=== PATIENT | female | born 1960 | race Caucasian/White ===

== ENCOUNTER 2023-11-28 14:39 | Inpatient (IN) | payer OTHER, SELFPAY ==
[2023-11-28] VITALS (9 sets, daily range): BP systolic 133–178; BP diastolic 56–91; BMI 25.3
[2023-11-28 12:44] LABS: % Basophils 0.3 % (0-2); % Eosinophils 1.2 % (0-6); % Immature Granulocytes 0.4 % (0-0.5); % Lymphocytes 27.7 % (20.5-51.1); % Monocytes 7.5 % (1.7-9.3); % Neutrophils 62.9 % (42.2-75.2); Absolute Eosinophils 0.1 10^3/uL (0-0.7); Absolute Lymphocytes 2.7 10^3/uL (1.2-3.4); Absolute Monocytes 0.7 10^3/uL (0.1-0.6); Absolute Neutrophils 6.2 10^3/uL (1.4-6.5); Hemoglobin 6.3 g/dL (12.0-16.0); Mean Corp Hgb Conc. 33.2 g/dL (33.0-37.0); Mean Corpuscular Hgb 29.6 pg (27.0-31.0); Mean Corpuscular Volume 89.2 fL (81.0-99.0); Mean Platelet Volume 11.6 fL (7.4-10.4); Nucleated Red Blood Cells % 0 %; Platelet Count 370 10^3/uL (130-400); Red Blood Cell Count 2.13 10^6/uL (4.20-5.40); Red Cell Dist. Width 16.3 % (11.5-14.5); White Blood Cell Count 9.9 10^3/uL (4.8-10.8)
[2023-11-28 12:50] LABS: ALT (SGPT) 14 U/L (0-35); AST (SGOT) 26 U/L (14-36); Albumin 3.9 g/dl (3.5-5.0); Alkaline Phosphatase 67 U/L (38-126); Blood Urea Nitrogen 22 mg/dl (7-17); Calcium 9.5 mg/dl (8.4-10.2); Carbon Dioxide 23 mmol/L (22-30); Chloride 110 mmol/L (98-107); Glucose 101 mg/dl (70-99); Lipase 130 U/L (23-300); Potassium 3.9 mmol/L (3.5-5.1); Sodium 140 mmol/L (135-145); Total Bilirubin 0.3 mg/dl (0.2-1.3); Total Protein 6.2 g/dl (6.3-8.2); eGFR 51.18
[2023-11-28 12:52] LABS: Urine Albumin Trace (Neg - Trace); Urine Bilirubin Negative (Negative); Urine Character Clear (Clear); Urine Color Yellow; Urine Glucose Negative (Negative); Urine Ketone Trace (Negative); Urine Leukocyte 2+ (Negative); Urine Nitrite Positive (Negative); Urine Occult Blood Trace (Negative); Urine Urobilinogen Negative (Neg - 1+)
--- NOTE | 2023-11-28 13:40 | ED.GENMED ---
History of Present Illness
General
Chief Complaint: Back Pain
Source: patient
Exam Limitations: none
Time Seen by Provider: 11/28/23 13:02
Nursing documentation reviewed up to this point in time: agreed with
History of Present Illness
History of Present Illness:
63-year-old female past medical history of hyperlipidemia previous smoker presenting to the emergency department today with feeling generally unwell over the last few days increasing shortness of breath fatigue and weakness. She has also had
ongoing back pain mainly to the low back with radiation down both legs. She was told that he had degenerative disc disease in the past as well. She is also had black stool over the past week. Denies any chest pain nausea vomiting numbness
weakness.
Past History
Past History
ED Past Medical History: Hypercholesterolemia (She takes a torn a statin)
ED Past Surgical History: None
Social History
Tobacco: Smoker
Living: with family
Employment: Employed
Review of Systems
Review of Systems
Allergies reviewed?: Yes
All Other Systems: ROS reviewed and negative except as documented in HPI and ROS
Phy Exam
Physical Exam
Physical Exam:
GENERAL: Alert , in no apparent distress
EYE: pupils equal and reactive
NECK: Supple, no significant adenopathy.
ENT: o/p clr, mmm.
CARDIAC: Regular rate and rhythm .
LUNGS: Clear breath sounds bilaterally, no acute respiratory distress, no wheezes/rales/rhonchi
ABDOMEN: Rectal examination with black stool guaiac positive, soft, without focal tenderness, no r/g, no cvat
NEUROLOGICAL: Alert and oriented, no focal neuro deficits
SKIN: Warm and dry, skin intact.
MUSCULOSKELETAL: No edema, well perfused.
PSYCH: Normal and appropriate interaction.
Course
Orders/Labs/Results
Orders:
Orders
11/28/23 12:14
ECG [Electrocardiogram (*1)] Urgent
Reason for Study: Chest Pain
EKG- Treatment ONCE
11/28/23 12:29
Complete Blood Count/With Diff Urgent
Comprehensive Metabolic Panel Urgent
Lipase Urgent
Troponin I Urgent
11/28/23 12:30
PT/INR [Prothrombin Time] Urgent
PTT Urgent
11/28/23 12:39
Urinalysis Reflex To Culture Urgent
Date Specimen was Collected: 11/28/23
Time Specimen was Collected: 12:37
Urine Microscopic Reflex Cult Urgent
Urine Culture Urgent
NALLELY Source: U
Specimen Description:
Date Specimen was Collected: 11/28/23
Time Specimen was Collected: 12:37
11/28/23 13:15
Type+Screen Urgent
11/28/23 13:21
* Blood Bank Products Urgent
Blood Bank Products: *Packed RBC Leuko(PRBC's)
Quantity: 1
Transfuse Today: Yes
Reason: Anemia
0.9% Sodium Chloride 1000 ml [Nss] 1,000 ml IV BOLUS
Pantoprazole [Protonix IV] 80 mg IV NOW STA
11/28/23 13:22
diazePAM [Valium Injection] 2 mg IV NOW STA
Abnormal Lab Results
11/28/23 11/28/23
12:29 12:39
RBC 2.13 L 10^6/uL
(4.20-5.40)
Hgb 6.3 L* g/dL
(12.0-16.0)
Hct 19.0 L* %
(37.0-47.0)
RDW 16.3 H %
(11.5-14.5)
MPV 11.6 H fL
(7.4-10.4)
Absolute Monos (auto) 0.7 H 10^3/uL
(0.1-0.6)
Chloride 110 H mmol/L
(98-107)
BUN 22 H mg/dl
(7-17)
Creatinine 1.2 H mg/dL
(0.6-1.0)
Glucose 101 H mg/dl
(70-99)
Total Protein 6.2 L g/dl
(6.3-8.2)
Urine Ketones Trace A
(Negative)
Ur Occult Blood Reflex Trace A
(Negative)
Urine Nitrite (Reflex) Positive A
(Negative)
Leukocyte Esterase Rfl 2+ A
(Negative)
Urine RBC 3-6 A /HPF
(0-2)
Urine Bacteria (Reflex) Many A
(Negative)
11/28/23 12:29
11/28/23 12:29
Vital Signs
Initial and Last Documented VS:
Initial Vital Signs
Temp Pulse Resp BP Pulse Ox
98.4 F 64 16 146/64 94
11/28/23 12:41 11/28/23 12:41 11/28/23 12:41 11/28/23 12:41 11/28/23 12:41
Last Documented Vital Signs
Temp Pulse Resp BP Pulse Ox
98.4 F 75 22 146/64 94
11/28/23 12:41 11/28/23 13:15 11/28/23 13:15 11/28/23 12:41 11/28/23 12:41
MDM/Problems Addressed
MDM/Problems Addressed:
63-year-old female presenting to the emergency department today with concerns of generalized weakness fatigue worsening over the past week also having back pain. Upon arrival here patient does have black stool that is guaiac positive. Reproducible
abdominal pain or back pain no red warmth. Hemoglobin of 6.3 patient was written for a unit of blood and will be admitted for GI consultation. Otherwise patient did have nitrite positive urine however no urinary symptoms at this point we will hold
on antibiotic.
*Critical Care Note
Total Time (30-74mins, 75-104mins- exclusive of procedures): Not Applicable
ED Attending Note
-
Portions of this chart may have been created with voice recognition software.� Occasional wrong word or��sound alike� substitutions may have occurred due to the inherent limitations of voice recognition software.
Discharge Plan
Departure
Patient Disposition: Admit
Date of Disposition: 11/28/23
Time of Disposition: 14:00
Admit to: Med/Surg
Admit to doctor: Pankaj
Presentation/result/management discussed w/ accepting MD/DO: Hospitalist
Patient with high blood pressure during this ER visit?: No
Condition: Good
Covid-19: Not Applicable
Discharge Problem:
Anemia, GI bleed, Back pain
Prescriptions:
No Action
atorvastatin 40 MG tablet
40 mg PO QPM
methylprednisolone [Medrol (Sathish)] 4 MG tablets,dose pack
4 tab PO . DIRECT Qty: 1 0RF
cyclobenzaprine 10 MG tablet
10 mg PO TIDPRN PRN (Reason: back pain/spasms) Qty: 30 0RF
ibuprofen 600 MG tablet
600 mg PO TIDPRN PRN (Reason: pain) Qty: 30 0RF
Referrals:
NONE,* [Family Provider] -
Interventions
Interventions:
*Risk Screen - Suicide Last Done: 11/28/23 11:48
*General Assessment Last Done: 11/28/23 11:48
*Neglect/Abuse Screening Last Done: 11/28/23 11:48
*ED COVID-19 Vaccine History Last Done: 11/28/23 11:48
ED-Musculoskeletal Assessment Last Done: 11/28/23 12:25
Discharge Date and Time
Print Language: GREENLANDIC
[2023-11-28 13:50] LABS: APTT 27.4 Sec (23.4-35.0)
[2023-11-28 13:57] LABS: Urine Bacteria Many (Negative)
[2023-11-28] MEDS: PROTONIX IV 80 MG IV (14:18)
[2023-11-28] MEDS: VALIUM INJECTION 2 MG IV (14:18)
[2023-11-28] MEDS: NSS 1000 IV ×2 (14:18→20:14)
--- NOTE | 2023-11-28 14:27 | HPS.HSE ---
Family Physician
-
Family Physician: * NONE
Chief Complaint
-
Dyspnea, back pain, dark stools for multiple days
History of Present Illness
63-year-old female with hyperlipidemia, DDD, former tobacco use that is presenting to the emergency department today stating that she felt unwell over the last few days with shortness of breath and weakness. Also complains of mild ongoing back pain
with radiation down both legs. Noted to have dark stools over the past week though denies any abdominal pain, nausea, vomiting, chest pain or weakness. Upon arrival was hemodynamically stable, afebrile, on room air. ED labs showed hemoglobin 6.3,
HCT 19%, BUN 22, creatinine 1.2. UA showed many bacteria, 2+ leukocyte esterase, positive nitrites, 3-6 RBC/hpf. Type and screen was obtained, 1 unit PRBC was ordered while in the ED.
Upon speaking with the patient and her at the bedside she states that she has had dark stools over the last 4 to 5 days. Has also had occasional abdominal pain, most noted today with some discomfort prior to coming into the hospital. She
states that the pain in her back has been there for multiple years, slowly getting worse with time. She has not seen a doctor in over 15 years, overdue for screening colonoscopy and other malignancy screening. She does currently smoke cigarettes.
Has also used excessive NSAIDs for multiple years, ibuprofen/Motrin/Aleve with 3 tablets in the morning and 3 tablets in the afternoon over time. She has recently started to cut back on NSAIDs and tried improvement with Tylenol and her regimen.
Medical History
Past Medical History
Past Medical History: Reports Hypercholesterolemia
Past Surgical History: Reports None
Social History
Tobacco: Smoker
Alcohol: Occasional
Drug: Former User
Family History
Family History: Not pertinent and Other (Mother: Breast cancer)
Allergies / Home Medications
Allergies reflects when Allergies were last updated in [facility].
Home Medications with original date entered in [employer]
Allergy/Medication List:
NKDA
Review of Systems
-
History Source: Patient
A 12 point ROS was completed and negative except as noted: Yes
Constitutional: Reports No Symptoms
Respiratory: Reports No Symptoms
Cardiac: Reports No Symptoms
Abdomen/GI: Reports Black Stools; Denies Abdominal Pain, Nausea, Vomiting or Diarrhea
: Reports No Symptoms
Musculoskeletal: Reports No Symptoms
Skin: Reports No Symptoms
Neurological: Reports No Symptoms
Endocrine: Reports No Symptoms
Hematologic/Lymphatic: Reports No Symptoms
Physical Exam
Vital Signs
Vital Signs
Temp Pulse Resp BP Pulse Ox
98.4 F 75 22 146/64 94
11/28/23 12:41 11/28/23 13:15 11/28/23 13:15 11/28/23 12:41 11/28/23 12:41
Physical Exam
General: Well Developed, Well Nourished, No Apparent Distress and Comfortable
HEENT: NormoCephalic, Anicteric, Moist mucous membranes, Atraumatic and PERRLA; No Thyromegaly or Nodules
Respiratory: Clear and Non Labored Respirations; No Wheezes, Rales, Rhonchi or Accessory Resp Muscle Use
Cardiac: S1/S2 and Regular Rhythm; No Murmur, Rub, Gallop, Peripheral Edema, JVD or Carotid Bruits
GI: Soft, Non Tender, Non Distended and Normal Bowel Sounds; No Organomegaly
Rectal: Deferred by Provider
Musculoskeletal: No Clubbing, No Cyanosis and No Edema
Skin: Warm and Dry; No Rash or Jaundice
Neuro: AO x 3, Nonfocal/grossly intact and Cranial Nerves Intact; No Tremors
Hematologic/Lymphatic: No Lymphadenopathy
Laboratory Results
-
11/28/23 12:29
11/28/23 12:29
Laboratory Results
PT 13.0 Sec (11.4-14.6) 11/28/23 12:30
INR 1.00 11/28/23 12:30
APTT 27.4 Sec (23.4-35.0) 11/28/23 12:30
Total Bilirubin 0.3 mg/dl (0.2-1.3) 11/28/23 12:29
AST 26 U/L (14-36) 11/28/23 12:29
ALT 14 U/L (0-35) 11/28/23 12:29
Alkaline Phosphatase 67 U/L (38-126) 11/28/23 12:29
Troponin I 0.020 ng/ml 11/28/23 12:29
Lipase 130 U/L (23-300) 11/28/23 12:29
Data Reviewed
-
Diagnostic Radiology: Report Reviewed by me
Lab Data: Labs Reviewed by me, Discussed with Physician and Discussed with Patient
Impression/Plan
-
#Melena -- DDx include PUD, AVM, Dieulafoy lesion, gastritis/duodenitis; UGIB > LGIB
#Acute blood loss anemia
#Abdomen pain
-Suspect upper GI source due to melena and hemoglobin 6.3 on arrival
-Glascow Blatchford score would be near 10, no hypotension, liver disease Hx or CHF Hx
-BUN to creatinine ratio <30 though suspicion for upper source of bleed is still high
-Not currently on any antiplatelet or standing AC regimens; does use ibuprofen as needed though
-Type and screen obtained in the ED, ordered 1 unit PRBC and given 80 mg IV pantoprazole
-Has remained hemodynamically stable throughout ED course
Plan
-Start IV PPI twice daily
-N.p.o. pending GI evaluation
-Stop NSAIDs, smoking cessation encouraged
-Repeat H/H this evening after blood, then Q8H
-Endoscopy inpatient versus outpatient
#Elevated serum creatinine -- CKD versus prerenal CT
-Creatinine was 1.2 with BUN 22 on ED labs, no previous records available
-Started on IV fluids in the context of GI bleed, trend daily BMP
#DDD
#Back pain -- likely related to DDD, cannot rule out peptic ulcer
-History of known degenerative disc disease
-Suspect that this is the cause of her back pain
#Tobacco use
-Patient is a regular daily smoker, likely contributing to GI bleed
-Advise cessation
DVT prophylaxis: SCDs
Diet: N.p.o. pending GI eval
CODE STATUS: Full code
Disposition: Admit to med/surg
I will be admitting Rajni Dougherty to med/surgery floor due to melena with acute upper GI bleed requiring blood transfusion. She has a high risk for ongoing morbidity mortality due to blood loss anemia and will require hospitalization for
hemostasis, potential GI endoscopy while inpatient. I have spoken with the patient, her , ED staff in regards to this case. I have spoken with the GI team as well, potential scope tomorrow morning.
--- NOTE | 2023-11-28 14:44 | CON.GI ---
Addendum entered and electronically signed by Juve Mohamud MD 11/28/23 18:49:
I saw and examined the patient.
The SECURITY BUSINESS ANALYST or PA's note was reviewed and I agree with the note.
Comment: This is a 63-year-old female who does not follow with physicians, smoker presenting with black stool found to have a hemoglobin of 6.3. BUN 22, creatinine 1.2. She was previously taking many NSAIDs but stopped about a month ago. Black
stools have been going on for about a week but has not had a bowel movement the last 2 days. Symptoms and presentation are consistent with an upper GI bleed most likely peptic ulcer disease. Differential includes but not limited to esophagitis,
gastritis, AVM, right-sided colonic bleed, small bowel bleed. Plan for upper endoscopy tomorrow risk alternatives, benefits explained to patient risks including but not limited to bleeding, infection, perforation. In the interim, recommend PPI,
transfuse and monitor hemoglobin, clear liquids today, n.p.o. after midnight.
Original Note:
Consultation
-
Date/Time Consultation Requested: 11/28/23
Date/Time Consultation Performed: 11/28/23 @ 14:30
Requesting Provider: Dr. Howell
Performing Provider: SOPHY Neal; Dr. Re Mohamud
Reason for Consultation: melena, anemia
Medical History
Chief Complaint / HPI
Chief Complaint: back pain, fatigue, weakness
History of Present Illness:
The patient is a 63-year-old female with a past medical history significant for hyperlipidemia, 1 pack/day cigarette smoker, who presented to the emergency room with complaints of weakness, fatigue, and back pain. We are being asked to evaluate for
melena with severe anemia. The patient reports that for the past 3 to 4 days she noticed that her stool has been black. She notes that she had been eating beet salad and was told that her stool can look dark because of this. She notes that she
has also been having progressive fatigue and weakness, and had a near syncopal episode yesterday. She denies any passing out, chest pain, or shortness of breath associated with this event. She does admit to some epigastric tenderness that she
describes as sharp in nature that comes and goes. She admits that several days ago she did have 1 episode of nausea with vomiting of brown emesis although she had drank coffee that day and thought this was related to that. She reports intermittent
constipation but denies any hematochezia. She drinks alcohol socially. She reports she had been taking Aleve 2 to 3 tablets daily for about a year but stopped this about 1 month ago. She denies any use of blood thinners. She denies any prior EGD
or colonoscopy. She denies any unintentional weight loss or early satiety. She denies any prior history of anemia. She reports family history of father who had oral cancer. Routine labs on admission showed a hemoglobin of 6.3, hematocrit 19.0,
MCV 89.2, platelets 370,000, INR 1.0, BUN 22, creatinine 1.2, potassium 3.9, sodium 140, with normal LFTs. Iron studies, vitamin B12, and folate are pending. She was started on IV Protonix, made n.p.o., and admitted for further evaluation by GI.
Past Medical History
Past Medical History: Hypercholesterolemia and Other (smoker 1PPD)
Past Surgical History: Gynecological (hysterectomy)
Social History
Tobacco: Smoker (1 PPD)
Alcohol: Occasional
Drug: None
Family History
Family History: Reviewed & Not Pertinent
Allergies / Home Medications
Allergy/AdvReac Type Severity Reaction Status Date / Time
No Known Allergies Allergy Verified 11/28/23 11:48
�Medication �Instructions �Recorded
No Meds [No Current Medications] 11/28/23
Review of Systems
-
History Source: Patient
Constitutional: Reports Fatigue
EENT: Reports No Symptoms
Respiratory: Reports No Symptoms
Cardiac: Reports No Symptoms
Abdomen/GI: Reports Abdominal Pain (epigastric), Nausea and Vomiting (x1 episode)
: Reports No Symptoms
Musculoskeletal: Reports Other (back pain)
Skin: Reports No Symptoms
Neurological: Reports Weakness
Endocrine: Reports No Symptoms
Hematologic/Lymphatic: Reports No Symptoms
Vital Signs
Temp Pulse Resp BP Pulse Ox
98.4 F 75 22 146/64 94
11/28/23 12:41 11/28/23 13:15 11/28/23 13:15 11/28/23 12:41 11/28/23 12:41
Physical Exam
Exam
General: Well Developed, Well Nourished, No Apparent Distress and Comfortable
HEENT: Normocephalic, Anicteric and Atraumatic
Respiratory: Clear
Cardiac: S1/S2 and Regular Rhythm
Breast: Deferred by me
GI: Soft, Non Tender, Non Distended and Normal Bowel Sounds
Rectal: Other (Black heme + per ER documentation)
Musculoskeletal: No Edema
Skin: Warm and Dry
Neuro: Awake, Alert and Oriented
Psych: Calm
Results
WBC 9.9 10^3/uL (4.8-10.8) 11/28/23 12:29
Hgb 6.3 g/dL (12.0-16.0) L* 11/28/23 12:29
Hct 19.0 % (37.0-47.0) L* 11/28/23 12:29
MCV 89.2 fL (81.0-99.0) 11/28/23 12:29
Plt Count 370 10^3/uL (130-400) 11/28/23 12:29
Absolute Neuts (auto) 6.2 10^3/uL (1.4-6.5) 11/28/23 12:29
PT 13.0 Sec (11.4-14.6) 11/28/23 12:30
INR 1.00 11/28/23 12:30
APTT 27.4 Sec (23.4-35.0) 11/28/23 12:30
Sodium 140 mmol/L (135-145) 11/28/23 12:29
Potassium 3.9 mmol/L (3.5-5.1) 11/28/23 12:
Chloride 110 mmol/L (98-107) H 11/28/23 12:
Carbon Dioxide 23 mmol/L (22-30) 11/28/23 12:
BUN 22 mg/dl (7-17) H 11/28/23:
Creatinine 1.2 mg/dL (0.6-1.0) H 11/28/23 12:
Calcium 9.5 mg/dl (8.4-10.2) 11/28/23 12:
Total Bilirubin 0.3 mg/dl (0.2-1.3) 11/28/23:
AST 26 U/L (14-36) 11/28/23:
ALT 14 U/L (0-35) 11/28/23:
Alkaline Phosphatase 67 U/L (38-126) 11/28/23 12:
Lipase 130 U/L (23-300) 11/28/23 12:
Prior GI Procedures:
EGD: none
Colonoscopy: none
Assessment / Plan
-
The patient is a 63-year-old female with a past medical history significant for hyperlipidemia, 1 pack/day cigarette smoker, who presented to the emergency room with complaints of weakness, fatigue, and back pain, found to have a hemoglobin of 6.3
concerning for possible GI bleed with black heme positive stool. She had been taking Aleve several tablets daily for over a year for chronic pain, but recently stopped it 1 month ago. She denies any use of blood thinners. She has never had an EGD
or colonoscopy in the past. She denies any history of peptic ulcer disease or GI bleed. Iron studies are pending. 1 unit of PRBC's ordered.
Problem list:
-symptomatic normocytic anemia
-melena, Heme+
-fatigue, weakness
-epigastric pain
-current smoker
-CT
Recommendations:
-Etiology of anemia and melena possibly secondary to upper GI source of blood loss such as peptic ulcer disease with prolonged use of NSAIDs versus AVMs versus erosive gastropathy versus other.
-Would recommend EGD for further evaluation given her melena, NSAID use, and anemia. Plan for tomorrow.
-OK for CLD today and NPO after MN 11/28
-Continue PPI IV BID
-Avoid NSAID's
-Large bore IV
-Trend H/H and transfuse to keep hgb >7; pending 1 unit PRBC
-Add iron studies, Vit B12, folate
-She ideally should have a colonoscopy as well given she has never had one. This likely can be done outpatient
-Further management pending above
-
-
Thank you for consultation and allowing me to participate in the patient's care. Please call the horizontal boring mill set up operator GI physician during the after hours with any questions or concerns.
[2023-11-28 15:52] LABS: Ferritin 27.9 ng/ml (11.1-264.0)
[2023-11-28 15:58] LABS: Iron 43 ug/dl (37-170)
[2023-11-28 16:08] LABS: Percent Saturation 12 % (20-50); Total Iron Binding Capacity 335 ug/dl (265-497)
[2023-11-28 16:24] LABS: Folate 19.1 ng/ml (2.76-20); Vitamin B12 261 pg/ml (239-931)
[2023-11-28 22:04] LABS: Hematocrit 19.8 % (37.0-47.0); Hemoglobin 6.6 g/dL (12.0-16.0); Mean Corp Hgb Conc. 33.8 g/dL (33.0-37.0); Mean Corpuscular Hgb 28.9 pg (27.0-31.0); Mean Corpuscular Volume 85.5 fL (81.0-99.0); Mean Platelet Volume 11.3 fL (7.4-10.4); Platelet Count 327 10^3/uL (130-400); Red Blood Cell Count 2.28 10^6/uL (4.20-5.40); Red Cell Dist. Width 16.4 % (11.5-14.5); White Blood Cell Count 10.4 10^3/uL (4.8-10.8)
--- NOTE | 2023-11-28 23:19 | PTCARENOTE ---
After 1u PRBCs, Hbg 6.6 and Hct 19.8. BLENDING KETTLE TENDER notified and 1u PRBCs ordered. PRBCs currently infusing into LAC. Pt aaox3 and VSS. Plan of care ongoing.
--- NOTE | 2023-11-29 02:03 | W.PN.UPDATE ---
Update Note
Progress Note Update
hgb is 6.6 after receiving one unit of blood. Vital sign within normal limit. One unit of blood was ordered.
[2023-11-29 02:14] VITALS: BP 160/68
[2023-11-29 07:00] VITALS: BP 156/65
[2023-11-29 07:23] LABS: % Basophils 0.5 % (0-2); % Eosinophils 2.5 % (0-6); % Immature Granulocytes 0.4 % (0-0.5); % Lymphocytes 27.4 % (20.5-51.1); % Monocytes 8.2 % (1.7-9.3); Absolute Basophils 0.1 10^3/uL (0-0.2); Absolute Eosinophils 0.3 10^3/uL (0-0.7); Absolute Monocytes 0.9 10^3/uL (0.1-0.6); Absolute Neutrophils 6.6 10^3/uL (1.4-6.5); Hematocrit 24.7 % (37.0-47.0); Hemoglobin 8.3 g/dL (12.0-16.0); Mean Corp Hgb Conc. 33.6 g/dL (33.0-37.0); Mean Corpuscular Hgb 29.1 pg (27.0-31.0); Mean Corpuscular Volume 86.7 fL (81.0-99.0); Mean Platelet Volume 11.9 fL (7.4-10.4); Nucleated Red Blood Cells % 0 %; Platelet Count 344 10^3/uL (130-400); Red Blood Cell Count 2.85 10^6/uL (4.20-5.40); Red Cell Dist. Width 15.9 % (11.5-14.5); White Blood Cell Count 10.9 10^3/uL (4.8-10.8)
[2023-11-29 08:17] LABS: Blood Urea Nitrogen 16 mg/dl (7-17); Calcium 8.8 mg/dl (8.4-10.2); Carbon Dioxide 22 mmol/L (22-30); Chloride 111 mmol/L (98-107); Estimated Creatinine Clearance 50 ml/min; Glucose 86 mg/dl (70-99); Sodium 138 mmol/L (135-145); eGFR > 60.00
[2023-11-29] MEDS: PROTONIX IV 40 MG IV (08:33)
[2023-11-29] MEDS: NSS (PRESERVATIVE FREE) 10 ML IV (08:34)
[2023-11-29] MEDS: NSS 1000 IV (08:36)
[2023-11-29 09:03] LABS: Hepatitis C Antibody Negative (Negative)
[2023-11-29 09:45] VITALS: BP 116/67
[2023-11-29 09:59] VITALS: BP 130/64
[2023-11-29 10:10] VITALS: BP_SYST 15
--- NOTE | 2023-11-29 10:32 | PTOTSP ---
Patient observed walking to a stretcher independently without signs of instability. PT evaluation is not warranted, will sign off. Discussed with RN.
--- NOTE | 2023-11-29 11:17 | W.PN.HOSP.TC ---
Today's Communication/Plan
-
Resume low residue diet
Continue with daily PPI
Trend H/H
Plan for outpatient colonoscopy +/- video capsule swallow
Assessment / Plan
Assessment / Plan
#Melena -- initial concern for UGIB, negative EGD today; possible right-sided colon bleed versus small bowel
#Acute blood loss anemia
-GI recently reached out, stated she had EGD without any findings for source of her bleeding
-Not currently on any antiplatelet or standing AC regimens; does use ibuprofen as needed though
-Status post 2 units of PRBC, hemoglobin on this recent check was 8.3
-Has remained hemodynamically stable throughout hospitalization
-Will need colonoscopy, if negative pill capsule swallow study for small bowel
-Transition from IV PPI twice daily to oral PPI daily
Plan
-Continue with oral Protonix 40 mg
-Start low residue diet which she should continue at [place]
-Stop NSAIDs, smoking cessation encouraged
-Repeat H/H this evening and then again tomorrow morning
-Plan for outpatient colonoscopy +/- video capsule swallow
#Elevated serum creatinine -- CKD versus prerenal CT
-Creatinine was 1.2 with BUN 22 on ED labs, no previous records available
-Started on IV fluids in the context of GI bleed, trend daily BMP
-Creatinine today 1.0, stable/resolved CT
#DDD
#Back pain -- likely related to DDD, cannot rule out peptic ulcer
-History of known degenerative disc disease
-Suspect that this is the cause of her back pain
#Tobacco use
-Patient is a regular daily smoker, likely contributing to GI bleed
-Advise cessation
DVT prophylaxis: SCDs
Diet: Low residue diet
CODE STATUS: Full code
Disposition: Admit to med/surg
Anticipated Discharge: 24 - 48 hours
Subjective/Interval History
-
Date of Service: November 29, 2023
No acute events overnight. States that she has not had any recurrence to her dark stools, denies any other associated symptoms of weakness, shortness of breath, chest pain, fevers or chills, abdominal pain
Objective Data
-
Labs:
Laboratory Results
11/29/23 11/29/23
06:23 06:24
WBC 10.9 H
Hgb 8.3 L D
Hct 24.7 L
Plt Count 344
Sodium 138
Potassium 4.0
Chloride 111 H
Carbon Dioxide 22
BUN 16
Creatinine 1.0
Glucose 86
Calcium 8.8
Vital Signs:
Vital Signs
Temp Pulse Resp BP Pulse Ox
97.5 F 58 15 130/64 100
11/29/23 10:10 11/29/23 10:10 11/29/23 10:10 11/29/23 09:59 11/29/23 10:10
I&O
11/28/23 11/29/23 11/30/23
06:59 06:59 06:59
Intake Total 500 / 500 1000 / 1000
Balance 500 / 500 1000 / 1000
Review of Systems
-
History Source: Patient
All other systems: Reviewed and negative
Respiratory: Reports No Symptoms
Cardiac: Reports No Symptoms
Abdomen/GI: Reports No Symptoms
Genitourinary: Reports No Symptoms
Musculoskeletal: Reports No Symptoms
Skin: Reports No Symptoms
Neuro: Reports No Symptoms
Endocrine: Reports No Symptoms
Hematologic / Lymphatic: Reports No Symptoms
Physical Exam
-
General: Well Nourished, No Apparent Distress, Comfortable and Conversant
HEENT: Normocephalic, Atraumatic, Moist Mucous Membranes and Anicteric
Respiratory: Clear to Auscultation and Non Labored Respirations; Negative Wheezes, Rales or Rhonchi
Cardiac: Regular Rhythm and S1/S2; Negative Murmur, Rub or Gallop
GI: Soft, Nontender, Nondistended and Normal Bowel Sounds
Musculoskeletal: No Clubbing, No Cyanosis and No Edema
Skin: Warm and Dry; Negative Rash or Jaundice
Neuro: AO x 3, Nonfocal/Grossly Intact and Central Nerve's Intact
Hematologic / Lymphatic: No Lymphadenopathy
Data Reviewed
-
Labs: Labs Reviewed by me
--- NOTE | 2023-11-29 12:05 | PTCARENOTE ---
Pt out in [facility] asking if she can eat. Staff offered twan butch and informed pt how to order meals. Pt then yelling at staff 'you better get me some F'n food', 'I haven't eaten in 2 F'n days' and 'I'm getting dressed and F'n leaving after I eat'. Pt
informed of plan to keep overnight to monitor, came in with GI bleed, requiring blood transfusion. Pt responded 'well I don't see why I have to wait until tomorrow'. IVs removed and notified. Pt currently ordering lunch and getting dressed.
--- NOTE | 2023-11-29 13:13 | PTCARENOTE ---
Pt stated 'I need to go get my keys from my car'. Pt informed that if she leaves the room, she can not return, will be giving up her room - to which she stated 'I don't need to be here' and then walked off of floor. IVs were already removed.
informed of patient leaving.
--- NOTE | 2023-11-29 14:27 | CM ---
Pt left AMA prior to CM meeting with her
[2023-11-30 12:28] LABS: tTG IgA Antibody 19.8 EU/ml (0-19); tTG IgG Antibody 6.7 EU/ml (0-19)
[2023-12-01] LABS: IgA 98 mg/dl (70-400)
== END 2023-11-29 14:15 | disposition left against medical advice (07) | DRG 378 ==
LOC: 3 WEST ACU 14:39
PROVIDERS: Emergency Medicine; Internal Medicine Gastroenterology; Student in an Organized Health Care Education/Training Program; ADMITTING PHYSICIAN Internal Medicine; CONSULT PHYSICIAN Internal Medicine Gastroenterology; EMERGENCY PHYSICIAN Emergency Medicine
PROC: 30233N1 Transfusion of Nonautologous Red Blood Cells into Peripheral Vein, Percutaneous Approach (ICD-10-PCS; 2023-11-28)
PROC: 0DJ08ZZ Inspection of Upper Intestinal Tract, Via Natural or Artificial Opening Endoscopic (ICD-10-PCS; 2023-11-29)
DX: K92.1 Melena (principal); D62 Acute posthemorrhagic anemia; N17.9 Acute kidney failure, unspecified; F17.210 Nicotine dependence, cigarettes, uncomplicated; N18.9 Chronic kidney disease, unspecified; M54.9 Dorsalgia, unspecified
CPT/HCPCS: 80048; 80053; 81003; 81015; 82607; 82728; 82746; 82784; 83516; 83540; 83550; 83690; 84484; 85025; 85027; 85610; 85730; 86231; 86803; 86850; 86900; 86901; 86920; 87077; 87086; 87186; 93005; 96361; 96374; 96375; 99285; J2916; P9016

== ENCOUNTER 2023-11-30 12:34 | Emergency (ER) | payer OTHER, SELFPAY ==
[2023-11-30 12:45] VITALS: BP 146/75
--- NOTE | 2023-11-30 14:08 | ED.GENMED ---
History of Present Illness
General
Chief Complaint: Rectal Bleeding
Source: patient
Exam Limitations: none
Time Seen by Provider: 11/30/23 13:46
History of Present Illness
History of Present Illness:
63-year-old female returns for reevaluation after leaving AMA yesterday. Patient was admitted the last few days for a GI bleed. Describing melanotic tarry stools. Patient had a upper scope yesterday that was unremarkable with no source of
bleeding. She is scheduled for outpatient colonoscopy in the near future. According to the patient they were planning on discharging her today. She has some vague mild upper abdominal discomfort since the upper endoscopy but this is not severe.
She has no fever. Complains of some general fatigue and weakness but this preceded her recent hospitalization
Past History
Past History
ED Past Medical History: Hypercholesterolemia (She takes a torn a statin)
ED Past Surgical History:
Social History
Tobacco: Smoker
Living: with family
Employment: Employed
Phy Exam
Physical Exam
Physical Exam:
GENERAL: Alert and oriented in no apparent distress
EYE: Orbits normal.
NECK: Supple
ENT: Pharynx without erythema upper dentures. Raspy voice but that has her baseline no drooling or stridor
CARDIAC: Regular rate and rhythm without any obvious murmurs.
LUNGS: Clear breath sounds,normal
ABDOMEN: Soft, without focal tenderness or distention
NEUROLOGICAL: Alert and oriented , grossly non-focal
SKIN: Warm and dry, no rash or lesion, no discoloration, skin intact.
MUSCULOSKELETAL: No edema,no deformity.Good color
PSYCH: Normal and appropriate interaction.
Course
Orders/Labs/Results
Orders:
Orders
11/30/23 14:24
Basic Metabolic Panel Urgent
11/30/23 14:25
Complete Blood Count/With Diff Urgent
Abnormal Lab Results
11/30/23 11/30/23
14:24 14:25
WBC 11.8 H 10^3/uL
(4.8-10.8)
RBC 3.01 L 10^6/uL
(4.20-5.40)
Hgb 8.6 L g/dL
(12.0-16.0)
Hct 25.2 L %
(37.0-47.0)
RDW 15.9 H %
(11.5-14.5)
MPV 11.2 H fL
(7.4-10.4)
Abs Immat Gran (auto) 0.1 H 10^3/uL
(0-0.05)
Absolute Neuts (auto) 8.5 H 10^3/uL
(1.4-6.5)
Absolute Monos (auto) 0.8 H 10^3/uL
(0.1-0.6)
Lymphocytes % 20.1 L %
(20.5-51.1)
Glucose 110 H mg/dl
(70-99)
11/30/23 14:25
11/30/23 14:24
Vital Signs
Initial and Last Documented VS:
Initial Vital Signs
Temp Pulse Resp BP Pulse Ox
98 F 71 18 146/75 98
11/30/23 12:45 11/30/23 12:45 11/30/23 12:45 11/30/23 12:45 11/30/23 12:45
Last Documented Vital Signs
Temp Pulse Resp BP Pulse Ox
98 F 67 17 179/80 97
11/30/23 12:45 11/30/23 15:55 11/30/23 15:55 11/30/23 15:55 11/30/23 15:55
MDM/Problems Addressed
Differential Diagnosis Includes:
Patient presents for reevaluation after recent admission/AMA for GI bleed. No source was found. She apparently was clinically stable while in the hospital. She appears clinically stable now. She has not had a bowel movement in 3 days. Nothing
remarkable on exam. Will check hemoglobin if stable discussed with hospitalist to be sure follow-up is arranged. Significant drop in hemoglobin would require rehospitalization
*Critical Care Note
Total Time (30-74mins, 75-104mins- exclusive of procedures): Not Applicable
Data Reviewed
Review of Other/Old Records Reveals: Labs, Records, Testing, Progress Notes and Other (Upper endoscopy report)
Update Note
Update Note:
Patient remained medically stable. Minimal leukocytosis but no clinical findings to support infectious issue. Currently not bleeding. No stool x 3 days. Discussed with GI who will follow up with outpatient colonoscopy. This is all been arranged
ED Attending Note
-
Portions of this chart may have been created with voice recognition software.� Occasional wrong word or��sound alike� substitutions may have occurred due to the inherent limitations of voice recognition software.
Discharge Plan
Departure
Patient Disposition: Home (Routine Discharge)
Date of Disposition: 11/30/23
Time of Disposition: 15:57
Patient with high blood pressure during this ER visit?: Yes
Discharge Problem:
GI bleed, Anemia
Instructions: Gastrointestinal Bleeding (DC), BLOOD PRESSURE
Prescriptions:
No Action
No Current Medications
0
Referrals:
Stanford Ching, DO [Family Provider] -
Activity Restrictions/Additional Instructions:
Follow-up with your outpatient colonoscopy. Return with any concerns or issues including recurrent bleeding dark melanotic stool abdominal pain etc.
Interventions
Interventions:
*Risk Screen - Suicide Last Done: 11/30/23 12:47
*General Assessment Last Done: 11/30/23 12:45
*Neglect/Abuse Screening Last Done: 11/30/23 12:45
*Nursing Disposition Last Done: 11/30/23 16:06
QZ-Mdeemk-Xubuaewyxn Assessment Last Done: 11/30/23 14:45
ED- Cardiac Assessment Last Done: 11/30/23 14:45
ED- Pulmonary Assessment Last Done: 11/30/23 14:45
Discharge Date and Time
Discharge Date/Time: 11/30/23 16:07
Print Language: MAORI
[2023-11-30 14:37] LABS: % Basophils 0.3 % (0-2); % Eosinophils 0.8 % (0-6); % Immature Granulocytes 0.5 % (0-0.5); % Lymphocytes 20.1 % (20.5-51.1); % Monocytes 6.5 % (1.7-9.3); % Neutrophils 71.8 % (42.2-75.2); Absolute Eosinophils 0.1 10^3/uL (0-0.7); Absolute Immature Granulocytes 0.1 10^3/uL (0-0.05); Absolute Lymphocytes 2.4 10^3/uL (1.2-3.4); Absolute Monocytes 0.8 10^3/uL (0.1-0.6); Absolute Neutrophils 8.5 10^3/uL (1.4-6.5); Hematocrit 25.2 % (37.0-47.0); Hemoglobin 8.6 g/dL (12.0-16.0); Mean Corp Hgb Conc. 34.1 g/dL (33.0-37.0); Mean Corpuscular Hgb 28.6 pg (27.0-31.0); Mean Corpuscular Volume 83.7 fL (81.0-99.0); Mean Platelet Volume 11.2 fL (7.4-10.4); Nucleated Red Blood Cells % 0 %; Platelet Count 354 10^3/uL (130-400); Red Blood Cell Count 3.01 10^6/uL (4.20-5.40); Red Cell Dist. Width 15.9 % (11.5-14.5); White Blood Cell Count 11.8 10^3/uL (4.8-10.8)
[2023-11-30 15:07] LABS: Blood Urea Nitrogen 17 mg/dl (7-17); Calcium 9.3 mg/dl (8.4-10.2); Carbon Dioxide 22 mmol/L (22-30); Chloride 107 mmol/L (98-107); Glucose 110 mg/dl (70-99); Potassium 3.6 mmol/L (3.5-5.1); Sodium 137 mmol/L (135-145); eGFR > 60.00
[2023-11-30 15:55] VITALS: BP 179/80
== END 2023-11-30 16:07 | disposition home or self-care (01) ==
LOC: EMR 12:34
PROVIDERS: EMERGENCY PHYSICIAN Emergency Medicine; FAMILY PHYSICIAN Family Medicine
DX: K92.2 Gastrointestinal hemorrhage, unspecified (principal); D64.9 Anemia, unspecified; R53.83 Other fatigue; R03.0 Elevated blood-pressure reading, without diagnosis of hypertension; E78.00 Pure hypercholesterolemia, unspecified; F17.200 Nicotine dependence, unspecified, uncomplicated
CPT/HCPCS: 99283; 80048; 85025

== ENCOUNTER → 2023-12-05 06:28 | Day surgery (SDC) | payer OTHER, SELFPAY | LOC: GI 06:28 | PROVIDERS: ATTENDING PHYSICIAN Internal Medicine Gastroenterology | DX: D50.9 Iron deficiency anemia, unspecified (principal); K62.89 Other specified diseases of anus and rectum; K92.1 Melena | CPT/HCPCS: 45378 ==

== ENCOUNTER → 2024-03-06 06:19 | Day surgery (SDC) | payer OTHER, SELFPAY | LOC: GI 06:19 | PROVIDERS: ATTENDING PHYSICIAN Internal Medicine Gastroenterology; FAMILY PHYSICIAN Family Medicine | DX: K92.1 Melena (principal); K62.89 Other specified diseases of anus and rectum; D12.2 Benign neoplasm of ascending colon; K62.1 Rectal polyp; K63.5 Polyp of colon | CPT/HCPCS: 45385; 45380; 88305 ==